=== PATIENT | male | born 1935 | race Caucasian/White ===

== ENCOUNTER 2018-08-24 06:56 | Day surgery (SDC) | payer MEDICARE ==
[~2018-08-24 06:56] MED LIST: Buffered Lidocaine 1% SYRIN* 1 ML/SYRINGE INTRADERM ONE; Famotidine IV* 10 MG/ML 2 ML (20 mg) IV ONE; Lactated Ringers 1000 ML Bag* 1,000 ML IV SCH
[2018-08-24] MEDS ORDERED: Buffered Lidocaine 1% SYRIN* 1 ML/SYRINGE INTRADERM ONE (07:18)
[2018-08-24] MEDS ORDERED: Lidocaine 2.5%/Prilocain 2.5%* 5 GM TUBE ONE (07:20)
[2018-08-24] MEDS ORDERED: Famotidine IV* 10 MG/ML 2 ML (20 mg) ONE (09:52)
[2018-08-24] MEDS ORDERED: Methylene Blue 0.5 %* 50 MG/10 ML AMP IV ONE (10:07)
[2018-08-24] MEDS ORDERED: Lidocaine 2% EPI 1:200000 MPF*10-20 ML VIAL ONE (10:07)
[2018-08-24] MEDS ORDERED: HYDROcodone/ACETAMIN 5-325 MG* 1 TAB PO PRN (10:55)
[2018-08-24] MEDS ORDERED: Acetaminophen TAB* 325 MG PO PRN (10:55)
[2018-08-24] MEDS ORDERED: Naloxone* 0.4 MG/ML 1 ML VIAL IV PRN (10:55)
[2018-08-24] MEDS ORDERED: fentaNYL* 50 MCG/ML 2 ML VIAL (100 MCG VIAL) IV PRN (10:55)
[2018-08-24] MEDS ORDERED: DiMENhydriNATE IV* 50 MG/ML VIAL IV PUSH PRN (10:55)
[2018-08-24] MEDS ORDERED: Ketorolac INJ* 30 MG/ML 1 ML VIAL IV PRN (10:55)
[2018-08-24] MEDS ORDERED: oxyCODONE TAB* 5 MG TAB PO PRN (10:55)
[2018-08-24] MEDS ORDERED: Midazolam* 1 MG/ML 2 ML VIAL (2 MG) ONE (11:19)
[2018-08-24] MEDS ORDERED: Propofol* 10 MG/ML 20 ML BTL ONE (11:19)
[2018-08-24] MEDS ORDERED: Lidocaine 2% PF * 5 ML VIAL ONE (11:19)
[2018-08-24] MEDS ORDERED: fentaNYL* 50 MCG/ML 2 ML VIAL (100 MCG VIAL) ONE (11:19)
[2018-08-24] MEDS ORDERED: Succinylcholine* 20 MG/ML 10 ML VIAL ONE (11:46)
[2018-08-24] MEDS ORDERED: EPHEDrine (Pressors)* 50 MG/ML VIAL ONE (11:56)
[2018-08-24 14:48] VITALS: BP 128/61
--- NOTE | 2018-08-24 23:25 | OP ---
DATE OF OPERATION: 08/24/18 [facility] DATE OF : 37 SURGEON: Richard Pearson MD MAINTENANCE PORTER: Dr. Woods. ANESTHESIOLOGIST: Leandro Kearns MD PRE-OP DIAGNOSIS: Melanoma right ear stage 3. POST-OP DIAGNOSIS: Melanoma right ear stage 3. OPERATIVE PROCEDURE: Wide excision of right ear lesion and three-layer reconstruction. Right superficial parotidectomy. BRIEF HISTORY: This 83-year-old gentleman with a biopsy proven melanoma stage 3 , indications for node biopsy and further resection of the right ear. DESCRIPTION OF PROCEDURE: The patient was taken to the operating room. Prior to the OR, he had had injection with radiotracer, this allowed us to try to identify a sentinel node. A curvilinear incision made in a type that would be indicative for a parotidectomy was carried out. We initially used the guided counter to try to identify in the posterior neck which is where the radiology department had felt was the most likely site. Unfortunately, there was a very low intake in the guided counter to suggest this area, most of the lighting up in the high 800 to 900 range was in the bed of the parotid. I started to resect the parotid off the sternocleidomastoid and the mastoid bone , feeling that I might be able to identify it, unfortunately was not able to and therefore, proceeded to do a superficial parotidectomy. Tunneling was carried out at the tympanomeatal suture line. The facial nerve was then identified. Careful tunneling was carried out along the lower branches. Resection of the lateral parotid lobe was carried out. This confirmed the highest intake level on the guided counter and then returning back to the in vitro area of the previous resection, it was noted that the count had gone down significantly. In this fashion, the superficial parotid lobe was sent away for pathology. We then turned our attention to the right ear. Wide excision from the previous resection site 2 cm on both sides in a wedge fashion was carried out. Reconstruction was carried out in three layers, including the cartilage layer. Once the wound was closed, cosmetic satisfactory resection was carried out, a total of 4 cm x 3 cm. The patient's neck was closed in a single layer. A small dressing was applied. The patient was awakened and sent to recovery room in stable condition. Instrument and sponge count correct. Blood loss minimal. [id number]/[facility] #: [id number] [facility]
== END 2018-08-24 15:25 | disposition home or self-care (01) ==
LOC: OR 06:56
PROVIDERS: ATTEND Otolaryngology
DX: C43.21 Malignant melanoma of right ear and external auricular canal (principal); D11.0 Benign neoplasm of parotid gland; E11.9 Type 2 diabetes mellitus without complications; Z79.84 Long term (current) use of oral hypoglycemic drugs; E78.5 Hyperlipidemia, unspecified; I45.10 Unspecified right bundle-branch block; I44.0 Atrioventricular block, first degree
CPT/HCPCS: 78195; 88305; 88307; 88341; 88342; A9270-GY; A9541; J0330; J2250; J2704; J3010

== ENCOUNTER 2019-04-14 13:49 | Emergency (ER) | payer MEDICARE ==
[2019-04-14 14:04] VITALS: BP 145/90
== END 2019-04-14 16:02 | disposition left against medical advice (07) ==
LOC: UCEAST 13:49
DX: Z53.21 Procedure and treatment not carried out due to patient leaving prior to being seen by health care provider (principal)

== ENCOUNTER 2019-04-14 17:33 | Emergency (ER) | payer MEDICARE ==
[2019-04-14 18:07] VITALS: BP 160/89
--- NOTE | 2019-04-14 18:44 | UC ---
Skin Complaint HPI - HPI Summary HPI Summary: 84 yo man with history of excision of melanoma from the pinna of the right ear one year ago by Dr. Pearson, comes for evaluation of an enlarging nodule on the right side of the neck. This was first noted one week ago and is mildly tender, and the size seems variable. He has not had fever, sore throat, and is not aware of any skin changes in the scalp. He is scheduled to see Dr. Bejarano mid next week for evaluation of the right ear pinna where there is a new dark lesion. - History of Current Complaint Chief Complaint: UCSkin Time Seen by Provider: 04/14/19 18:34 Stated Complaint: SWOLLEN AREA IN NECK Hx Obtained From: Patient Onset/Duration: Gradual Onset, Lasting Days Timing: Constant Onset Severity: Mild Current Severity: Mild Pain Intensity: 2 Location: Discrete - right side of neck Aggravating Factor(s): Touch Alleviating Factor(s): Nothing Associated Signs & Symptoms: Positive: Negative Related History: Insect Bite/Sting - He has a hx of many tick bites in the past , along with a hx of Lyme disease. - Allergy/Home Medications Allergies/Adverse Reactions: Allergies Allergy/AdvReac Type Severity Reaction Status Date / Time carbamazepine [From Tegretol] Allergy Severe Swelling Verified 04/14/19 18:07 Of Face,Lips,& Throat phenytoin [From Dilantin] Allergy Severe Swelling Verified 04/14/19 18:07 Of Face,Lips,& Throat PMH/Surg Hx/FS Hx/Imm Hx Endocrine History: Diabetes Cardiovascular History: Hypertension - Surgical History Surgical History: Yes Surgery Procedure, Year, and Place: 1975 VARICOSE VEIN. 2003 ORIF TIB FIB [facility]. 2003 RT HAND DUPUYTRENS [facility]. 2006 POLYPECTOMY [facility]. 2010 HERNIA RT ING [facility]. 2011 LT HAND DUPUYTRENS [facility] - Family History Known Family History: Positive: None, Cardiac Disease - mother (CHF), Other - stomach cancer (father) - Social History Occupation: Retired Lives: With Family Alcohol Use: Occasionally Alcohol Amount: 1 bottle of wine over a month period Substance Use Type: None Smoking Status (MU): Never Smoked Tobacco Amount Used/How Often: INFREQENTLY Have You Smoked in the Last Year: No When Did the Patient Quit Smoking/Using Tobacco: 1979 - Immunization History Most Recent Influenza Vaccination: 2014 Most Recent Tetanus Shot: utd Most Recent Pneumonia Vaccination: utd Review of Systems All Other Systems Reviewed And Are Negative: Yes Constitutional: Positive: Negative Skin: Positive: Other - skin nodule on ear pinna, nodule in right neck. ENT: Positive: Negative Respiratory: Positive: Negative Cardiovascular: Positive: Negative Gastrointestinal: Positive: Negative Genitourinary: Positive: Negative Motor: Positive: Negative Neurovascular: Positive: Negative Musculoskeletal: Positive: Negative Neurological: Positive: Negative Psychological: Positive: Negative Is Patient Immunocompromised?: No Physical Exam Triage Information Reviewed: Yes Appearance: Well-Appearing, No Pain Distress Vital Signs: Initial Vital Signs Temp 98.6 F 04/14/19 18:01 Pulse 83 04/14/19 18:01 Resp 16 04/14/19 18:01 BP 160/89 04/14/19 18:01 Pulse Ox 98 04/14/19 18:01 Eye Exam: Normal ENT: Positive: Pharynx normal Neck: Positive: Supple, Nontender, Enlarged Nodes @ - 2.5 x 2 cm firm nodule top of right anterior cervical chain. Minimally mobile. No other nodues palpable in posterior cervical, pre- or post-auricular, occipital chain. Respiratory: Positive: Lungs clear, Normal breath sounds Cardiovascular: Positive: RRR, No Murmur Musculoskeletal Exam: Normal Neurological Exam: Normal Psychological Exam: Normal Skin Exam: Other - pinna of right ear lobe with circumscribed, dark 3 mm flat lesion with small amount of scale. Well heled scar right pinna. Course/Dx - Course Course Of Treatment: Right anterior cervical adenopathy, will need further evaluation. Is set to see his coding validator this week. - Differential Diagnoses - Skin Complaint Differential Diagnoses: Lymphadenitis - Diagnoses Provider Diagnosis: Lymphadenopathy of right cervical region Discharge ED - Sign-Out/Discharge Documenting (check all that apply): Patient Departure All imaging exams completed and their final reports reviewed: No Studies - Discharge Plan Condition: Good Disposition: HOME Patient Education Materials: Adenitis (ED) Referrals: Nilton Mendoza MD [Primary Care Provider] - Additional Instructions: The nodule in the right side of your neck is most likely a lymph node, and this does need further evaluation. It is important that you follow up with Dr. Bejarano this week who will help to guide advised follow up given your history of melanoma, and likely will need collaboration between Dr. Abdullahi and Dr. Bejarano. - Billing Disposition and Condition Condition: GOOD Disposition: Home
== END 2019-04-14 19:00 | disposition home or self-care (01) ==
LOC: UCEAST 17:33
DX: R59.0 Localized enlarged lymph nodes (principal); L98.8 Other specified disorders of the skin and subcutaneous tissue; I10 Essential (primary) hypertension; E11.9 Type 2 diabetes mellitus without complications; Z88.8 Allergy status to other drugs, medicaments and biological substances
CPT/HCPCS: 99211; G0463

== ENCOUNTER 2019-06-15 12:55 | Day surgery (SDC) | payer MEDICARE ==
[~2019-06-15 12:55] MED LIST changes: -Famotidine IV* 10 MG/ML 2 ML (20 mg) IV ONE
[2019-06-15] MEDS ORDERED: ceFAZolin 2 GM PREMIX in ORs 2 GM/50 ML BAG ONE (13:43)
[2019-06-15] MEDS ORDERED: Lidocaine 1% INJ* 10 MG/ML 30 ML SDV ONE (14:08)
[2019-06-15] MEDS ORDERED: Propofol* 10 MG/ML 20 ML BTL ONE (14:28)
[2019-06-15] MEDS ORDERED: Lidocaine 2% PF * 5 ML VIAL ONE (14:28)
[2019-06-15] MEDS ORDERED: Ondansetron INJ* 2 MG/ML VIAL IV PRN (15:22)
[2019-06-15] MEDS ORDERED: Acetaminophen TAB* 325 MG PO PRN ×2 (15:22→16:03)
[2019-06-15] MEDS ORDERED: Naloxone* 0.4 MG/ML 1 ML VIAL IV PRN (15:22)
[2019-06-15] MEDS ORDERED: Ibuprofen TAB* 400 MG PO PRN (16:02)
--- NOTE | 2019-06-15 16:08 | OP ---
Operative Report - Blank - Operative Report Date of Operation: 06/15/19 Note: PREOP DX: MALIGNANT MELANOMA POSTOP DX: MALIGNANT MELANOMA PROC: POWERPORT PLACEMENT SURG: MECENAS ASSIST: NONE ANES: LOCAL/MAC; RODRIGUEZ EBL: MIN IVF: LR SPEC: NONE DRAIN: NONE COMPL: NONE COND: STABLE FINDINGS: LEFT SUBCLAVIAN APPROACH; NO COMPLICATIONS; CXR CONFIRMED POSITION.
[2019-06-15 16:27] VITALS: BP 116/59
--- NOTE | 2019-06-16 01:27 | OP ---
CC: Zechariah Abdullahi MD; Nilton Mendoza MD * DATE OF OPERATION: 06/15/19 - [facility] DATE OF : 37 SURGEON: Garcia Wells MD REAL ESTATE ACQUISITION ANALYST: None. ANESTHESIOLOGIST: Dr. Sauceda. ANESTHESIA: Local MAC. PRE-OP DIAGNOSIS: Malignant melanoma. POST-OP DIAGNOSIS: Malignant melanoma. OPERATIVE PROCEDURE: Left subclavian PowerPort placement. ESTIMATED BLOOD LOSS: Minimal. IV FLUIDS: Crystalloid. SPECIMEN: None. DRAINS: None. COMPLICATIONS: None. COUNTS: Instrument, needle, and sponge counts correct. DESCRIPTION OF PROCEDURE: The patient was brought to the operating room and placed on the table supine. Sequential compression devices were placed on both lower extremities. Intravenous sedation was administered. After being properly positioned and padded and after receiving appropriate intravenous antibiotics, he was prepped and draped in usual sterile fashion. A left subclavian approach was used and after cannulating the subclavian vein, the wire position in the superior vena cava was confirmed under fluoroscopy. Additional anesthetic was then infiltrated to the upper left chest and the pocket was created. The 8-Fijian PowerPort was back tunneled from the guidewire insertion site and peel-away sheath and dilator were advanced into the superior vena cava. Catheter was advanced with the tip positioned at the atriocaval junction and then the peel-away sheath was removed. The catheter was cut to 28 cm length and it was connected to the port. This was placed into the pocket. It was accessed, it lakesha and flushed easily. The port was secured with a single suture of 2-0 Prolene. The wound was closed in two layers with 3- 0 Vicryl for the subcutaneous tissue, 4-0 Monocryl for the skin. Also, 4-0 Monocryl was used to close the counterincision. The wounds were dressed with DermaFlex. He tolerated the procedure well and was transferred to Recovery in stable condition. [id number]/[facility] #: [id number] [facility]
== END 2019-06-15 17:12 | disposition home or self-care (01) ==
LOC: OR 12:55
PROVIDERS: ATTEND Surgery
DX: C43.9 Malignant melanoma of skin, unspecified (principal); E11.9 Type 2 diabetes mellitus without complications; Z79.84 Long term (current) use of oral hypoglycemic drugs; Z87.891 Personal history of nicotine dependence; I10 Essential (primary) hypertension; C61 Malignant neoplasm of prostate; I45.10 Unspecified right bundle-branch block; I44.0 Atrioventricular block, first degree
CPT/HCPCS: 71045; 76000; C1788; J0690; J1642; J2704

== ENCOUNTER 2024-01-25 17:44 | Observation (INO) ==
[2024-01-25 20:45] LABS: ABS Lymphocytes 0.6 10^3/uL (1.0-4.8); ABS Monocytes 0.8 10^3/uL (0.0-1.1); ABS Neutrophils 6.4 10^3/uL (1.5-7.6); Eosinophil % 0.2 %; Hematocrit 32.8 % (38-53); Hemoglobin 11.1 g/dL (13.2-16.3); Lymphocyte % 7.7 %; Mean Corpuscular Hemoglobin 29.9 pg (27-33); Mean Corpuscular Hgb Conc 33.7 g/dL (31-36); Mean Corpuscular Volume 88.6 fL (80-97); Mean Platelet Volume 8.2 fL (7.5-11.2); Nucleated Red Blood Cells % 0.1 %/100WBC (0.0-0.8); Platelet Count 153 10^3/uL (150-450); Red Cell Distribution Width 14.5 % (12-17); White Blood Count 7.9 10^3/uL (3.6-10.2)
[2024-01-25 21:02] LABS: Activated Partial Thrombo Time 30.9 seconds (26.0-38.0); INR 1.1 (0.85-1.14)
[2024-01-25 21:27] LABS: Albumin 3.6 g/dL (3.2-5.2); Albumin/Globulin Ratio 1.3 (1-3); Calcium 8.4 mg/dL (8.6-10.3); Creatinine, Serum 2.1 mg/dL (0.67-1.17); Globulin 2.8 g/dL (2-4); Total Bilirubin 1.3 mg/dL (0.2-1.0); Total Protein 6.4 g/dL (6.4-8.9); eGFR CKD-EPI 29.9 (>60)
[2024-01-25 23:09] LABS: Urine Appearance Extra Turbid; Urine Bilirubin Negative (Negative); Urine Blood 2+ (Negative); Urine Glucose Negative (Negative); Urine Ketones Negative (Negative); Urine Nitrite Negative (Negative); Urine Protein 2+ (>=100 mg/dL) (Negative); Urine Specific Gravity 1.014 (1.002-1.030); Urine Urobilinogen Negative (Negative)
[2024-01-25 23:13] LABS: Urine Bacteria 2+ /HPF (Absent); Urine Red Blood Cell 3+(>10/hpf) /HPF (0-Trace); Urine Squamous Epithelial Cell Present /HPF (Absent); Urine White Blood Cell 3+(>20/hpf) /HPF (0-Trace)
[2024-01-25 23:20] LABS: Urine Color Yellow
[2024-01-26] MEDS ORDERED: Dextrose 50% Syringe 50 ml 25 GM/50 ML SYRINGE IV PUSH PRN (05:25)
[2024-01-26] MEDS: cefTRIAXone 1 gm/50 mL D5W 1 GM/50 ML BAG IV SCH (06:35)
[2024-01-26 06:52] LABS: ABS Lymphocytes 0.8 10^3/uL (1.0-4.8); ABS Monocytes 0.9 10^3/uL (0.0-1.1); ABS Neutrophils 4.7 10^3/uL (1.5-7.6); Eosinophil % 0.6 %; Hematocrit 28.2 % (38-53); Hemoglobin 9.9 g/dL (13.2-16.3); Lymphocyte % 12.7 %; Mean Corpuscular Hemoglobin 30.7 pg (27-33); Mean Corpuscular Volume 87.8 fL (80-97); Mean Platelet Volume 8.2 fL (7.5-11.2); Platelet Count 136 10^3/uL (150-450); Red Blood Count 3.21 10^6/uL (4.06-5.63); Red Cell Distribution Width 14.3 % (12-17); White Blood Count 6.6 10^3/uL (3.6-10.2)
[2024-01-26] MEDS: NS 0.9% 1000 ml BAG 1,000 ML IV SCH ×2 (06:55→14:58)
[2024-01-26 07:14] LABS: Calcium 8.1 mg/dL (8.6-10.3); Creatinine, Serum 2.02 mg/dL (0.67-1.17); Potassium 3.8 mmol/L (3.5-5.0); eGFR CKD-EPI 31.3 (>60)
[2024-01-26] MEDS: Pantoprazole VIAL 40 MG VIAL IV SCH (07:33)
[2024-01-26 13:52] LABS: Hematocrit 28.7 % (38-53); Hemoglobin 9.9 g/dL (13.2-16.3)
[2024-01-26] MEDS ORDERED: Nystatin TOP POWDER 15 GM BTL TOPICAL PRN (18:34)
[2024-01-26 19:57] LABS: Hematocrit 29.6 % (38-53); Hemoglobin 10.4 g/dL (13.2-16.3)
[2024-01-26] MEDS: CMCS: Simvastatin 10 mg TAB (NF) PO SCH (20:05)
[2024-01-27 02:22] LABS: Hematocrit 28.7 % (38-53); Hemoglobin 9.9 g/dL (13.2-16.3)
[2024-01-27] MEDS: cefTRIAXone 1 gm/50 mL D5W 1 GM/50 ML BAG IV SCH (05:39)
[2024-01-27 08:29] LABS: ABS Eosinophils 0.1 10^3/uL (0.0-0.5); ABS Lymphocytes 0.7 10^3/uL (1.0-4.8); ABS Monocytes 0.7 10^3/uL (0.0-1.1); ABS Neutrophils 5.8 10^3/uL (1.5-7.6); ABS Nucleated RBC 0.01 10^3/ul; Eosinophil % 0.7 %; Hematocrit 29.7 % (38-53); Hemoglobin 10.3 g/dL (13.2-16.3); Lymphocyte % 9.3 %; Mean Corpuscular Hemoglobin 30.3 pg (27-33); Mean Corpuscular Hgb Conc 34.5 g/dL (31-36); Mean Corpuscular Volume 87.7 fL (80-97); Mean Platelet Volume 7.8 fL (7.5-11.2); Nucleated Red Blood Cells % 0.1 %/100WBC (0.0-0.8); Platelet Count 140 10^3/uL (150-450); Red Blood Count 3.39 10^6/uL (4.06-5.63); Red Cell Distribution Width 14.7 % (12-17); White Blood Count 7.3 10^3/uL (3.6-10.2)
[2024-01-27 08:45] LABS: Calcium 7.9 mg/dL (8.6-10.3); Creatinine, Serum 1.53 mg/dL (0.67-1.17); Potassium 3.8 mmol/L (3.5-5.0); eGFR CKD-EPI 43.7 (>60)
[2024-01-27] MEDS ORDERED: fentaNYL 100 mcg/2 ml 50 MCG/ML VIAL ONE (13:06)
[2024-01-27] MEDS ORDERED: Propofol 10 MG/ML 20 ML BTL ONE (13:06)
[2024-01-27] MEDS ORDERED: Lidocaine 2% PF 5 ML VIAL ONE (13:07)
[2024-01-28 07:27] LABS: ABS Eosinophils 0.1 10^3/uL (0.0-0.5); ABS Lymphocytes 0.9 10^3/uL (1.0-4.8); ABS Monocytes 0.7 10^3/uL (0.0-1.1); ABS Neutrophils 6.8 10^3/uL (1.5-7.6); Eosinophil % 1.1 %; Hematocrit 29.1 % (38-53); Lymphocyte % 10.6 %; Mean Corpuscular Hemoglobin 30.2 pg (27-33); Mean Corpuscular Hgb Conc 34.3 g/dL (31-36); Mean Corpuscular Volume 87.9 fL (80-97); Mean Platelet Volume 7.8 fL (7.5-11.2); Platelet Count 154 10^3/uL (150-450); Red Blood Count 3.31 10^6/uL (4.06-5.63); Red Cell Distribution Width 14.3 % (12-17); White Blood Count 8.6 10^3/uL (3.6-10.2)
[2024-01-28 07:49] LABS: Calcium 7.9 mg/dL (8.6-10.3); Creatinine, Serum 1.44 mg/dL (0.67-1.17); Magnesium 1.7 mg/dL (1.9-2.7); Potassium 4.2 mmol/L (3.5-5.0)
[2024-01-28 12:26] LABS: Urine Bilirubin No Culture Negative (Negative); Urine Blood No Culture 3+ (Negative); Urine Glucose No Culture 1+ (>=70 mg/dL) (Negative); Urine Ketones No Culture Negative (Negative); Urine Leukocytes No Culture 500 (3+) Leu/uL (Negative); Urine Nitrite No Culture Negative (Negative); Urine Protein No Culture 2+ (>=100 mg/dL) (Negative); Urine Specific Gravity No Cx 1.014 (1.002-1.030); Urine Urobilinogen No Cx Negative (Negative)
[2024-01-28 12:33] LABS: Ur Squamous Epithelial No Cx Present /HPF (Absent); Urine Bacteria No Culture 1+ /HPF (Absent); Urine Red Blood Cell No Cult 3+(>10/hpf) /HPF (0-Trace); Urine White Blood Cell No Cult 3+(>20/hpf) /HPF (0-Trace)
[2024-01-28 12:34] LABS: Urine Color No Culture Light-Orange
[2024-01-28 13:44] VITALS: BP 128/60
== END 2024-01-28 16:15 | disposition home or self-care (01) ==
LOC: ED 17:44 → EDHOLD 17:44 → MED 01-26 13:04
PROVIDERS: ADMIT Hospitalist; ATTEND Internal Medicine
PROC: O.GIEGD (2024-01-27 10:50)